=== PATIENT | male | born 1950 | race Caucasian/White ===

== ENCOUNTER 2022-01-08 09:43 | Emergency (ER) | payer MEDICARE, SELFPAY ==
[2022-01-08 09:54] VITALS: BP 146/92; PULSE 79; RESP 20; TEMP 36.8; O2SAT 98
--- NOTE | 2022-01-08 10:24 | ED.SKABFB ---
HPI - Skin/Abscess/Foreign Bdy General Chief complaint: Skin/Abscess/Foreign Body Stated complaint: finger possible infection Time Seen by Provider: 01/08/22 10:26 Source: patient, family, RN notes reviewed and old records reviewed Mode of arrival: ambulatory Limitations: no limitations History of Present Illness HPI narrative: Presents to express care with complaints of swelling, bruising, and discomfort to his left middle finger. Patient reports he cut his finger on Thursday with a fillet knife and has a 1 cm laceration which is minimal subcutaneous. Patient reports that he has noticed some purulent drainage from wound area over the weekend. Patient reports that he has been cleansing his finger with peroxide and applying Neosporin ointment. Patient reports that his tetanus shot is not up to date. Left middle finger is swollen and painful to palpation. Also red 0.5cm lesion above left elbow noted today possible insect bite, no drainage noted. MD complaint: other (swelling, redness,pain left middle finger) Tetanus up to date: no Severity scale (1-10): 3 Treatments prior to arrival: NSAID and other (peroxide and Neosporin) Related Data Home Medications Medication Instructions Recorded Confirmed atorvastatin 20 mg tablet 20 mg PO DAILY 01/08/22 01/08/22 losartan 25 mg tablet 25 mg PO DAILY 01/08/22 01/08/22 Allergies Allergy/AdvReac Type Severity Reaction Status Date / Time Penicillins Allergy Swelling Verified 01/08/22 10:08 Review of Systems Review of Systems: CONSTITUTIONAL: Denies fever, chills, or sweats. EYES: Denies visual changes, redness, or discharge. ENT: Denies rhinorrhea, congestion, sore throat, or otalgia. CARDIOVASCULAR: Denies chest pain, palpitations, or edema. RESPIRATORY: Denies cough or dyspnea. GASTROINTESTINAL: Denies abdominal pain, nausea, vomiting, or diarrhea. GENITOURINARY: Denies dysuria or hematuria. SKIN: Positive for swelling and redness to dorsal aspect of left middle finger with drainage from laceration to distal area of finger 1cm which occurred 5 days ago. small red lesion 0.5cm above left elbow possible insect bite. MUSCULOSKELETAL: Denies back pain, joint pain, or myalgia. NEUROLOGIC: Denies headache, numbness, or weakness. PSYCHIATRIC: Denies anxiety or depression. [facility] Past Medical History Medical History (Updated 01/09/22 @ 21:16 by Delia Mondragon NP) Elevated cholesterol Hypertension Multiple fractures left foot, left leg, left patella ,left arm right arm right middle finger Pneumonia Surgical History Surgical History (Updated 01/09/22 @ 20:48 by Delia Mondragon NP) History of bilateral inguinal herniorrhaphies X2 Family History Family History (Updated 01/09/22 @ 21:11 by Delia Mondragon NP) Father Diabetes mellitus Mother Heart disease Sibling Cancer Social History Social History (Updated 01/09/22 @ 20:51 by Delia Mondragon NP) Smoking status: Former smoker Additional smoking assessment comments: Smoked for 8 years quit in 1970 Alcohol intake: never Substance use type: does not use Living arrangements: with family Occupation/Education: retired Gender identity (if verbalized by the patient): Male Comments At time of signature, agree with nursing past medical, surgical, social and family history. There is no relevant family history pertinent to the presenting complaint Exam Narrative: GENERAL: Well-appearing, well-nourished, and in no acute distress. HEAD: Normocephalic, atraumatic. EYES: PERRLA and EOMI. ENT: Nares clear, no rhinorrhea or epistaxis. Mucous membranes moist.TM's normal with good light relfex, throat pink with no lesion or exudates or tonsil swelling. NECK: Supple.no lymphadenopathy CHEST: Clear to auscultation. No respiratory distress.SAO2 98% on room air HEART: Regular rate and rhythm. No murmur heard. Normal peripheral pulses. ABDOMEN: Soft, nontender, nondistended, normal active bowel sounds. EXTREMITIES: No
[2022-01-08] MEDS: TETANUS,DIPHTHERIA,AC PERTUSSIS ADULT (0.5 ML) BOOSTRIX IM (10:31)
== END 2022-01-08 10:57 | disposition home or self-care (01) ==
PROVIDERS: Emergency Provider Registered Nurse
DX: S61.213A Laceration without foreign body of left middle finger without damage to nail, initial encounter (principal); L08.9 Local infection of the skin and subcutaneous tissue, unspecified; W26.0XXA Contact with knife, initial encounter; L02.414 Cutaneous abscess of left upper limb; Z23 Encounter for immunization; Z87.891 Personal history of nicotine dependence; E78.00 Pure hypercholesterolemia, unspecified; I10 Essential (primary) hypertension
CPT/HCPCS: 90471; 90715; 99213; G0463